=== PATIENT | male | born 1940 | race Caucasian/White ===

== ENCOUNTER → 2016-12-10 | Outpatient (CLI) | payer MEDICARE ==
[~2016-12-10] MED LIST: AMOX400S16 PO; ASPI-496 PO; ATOR10TA9 PO; HYDR15SO3 PO; METF500T4 PO; OMNIPAQUE 350 MG/ML, 100ML BOTTLE ONE; SOLI10TA PO
== END | disposition home or self-care (01) ==
LOC: CFH 15:25
PROVIDERS: ATTEND Internal Medicine Hematology & Oncology
DX: C11.9 Malignant neoplasm of nasopharynx, unspecified (principal); J32.9 Chronic sinusitis, unspecified
CPT/HCPCS: 70460; 82565; Q9967

== ENCOUNTER → 2017-03-31 | Outpatient (CLI) | payer MEDICARE ==
[~2017-03-31] MED LIST changes: -OMNIPAQUE 350 MG/ML, 100ML BOTTLE ONE; -SOLI10TA PO; +SOLI10TA2 PO
== END | disposition home or self-care (01) ==
LOC: CFH 13:52
PROVIDERS: ATTEND Internal Medicine Hematology & Oncology
DX: R90.82 White matter disease, unspecified (principal); J34.89 Other specified disorders of nose and nasal sinuses; S09.90XA Unspecified injury of head, initial encounter; W18.30XA Fall on same level, unspecified, initial encounter; C11.9 Malignant neoplasm of nasopharynx, unspecified; Y93.89 Activity, other specified; Y92.89 Other specified places as the place of occurrence of the external cause; Y99.8 Other external cause status
CPT/HCPCS: 70450

== ENCOUNTER → 2017-07-29 | Outpatient (CLI) | payer MEDICARE ==
[~2017-07-29] MED LIST changes: +OMNIPAQUE 350 MG/ML, 75ML BOTTLE ONE
== END | disposition home or self-care (01) ==
LOC: CFH 14:15
PROVIDERS: ATTEND Internal Medicine Hematology & Oncology
DX: C91.10 Chronic lymphocytic leukemia of B-cell type not having achieved remission (principal); C7A.1 Malignant poorly differentiated neuroendocrine tumors; C11.9 Malignant neoplasm of nasopharynx, unspecified; J34.89 Other specified disorders of nose and nasal sinuses
CPT/HCPCS: 70487; Q9967

== ENCOUNTER 2017-09-28 19:47 | Emergency (ER) | payer MEDICARE ==
[~2017-09-28] VITALS: Ht 172.7 cm; Wt 73.0 kg
[~2017-09-28 19:47] MED LIST changes: -OMNIPAQUE 350 MG/ML, 75ML BOTTLE ONE
[2017-09-28] MEDS ORDERED: SODIUM CHLORIDE 0.9% 1,000ML IVBOLUS ONE (20:30)
[2017-09-28] MEDS ORDERED: SODIUM CHLORIDE FLUSH 10ML SYR IVF ONE (20:30)
[2017-09-28 20:36] LABS: MEAN CORPUSCULAR HEMOGLOBIN 28.2 pg (27.5-34.5); MEAN CORPUSCULAR HGB CONC 32.1 g/dL (33.2-36.2); MEAN CORPUSCULAR VOLUME 87.7 fL (81-97); MEAN PLATELET VOLUME 6.9 fL (7.4-10.4); PLATELET COUNT 353 x10^3/uL (130-400); RED BLOOD COUNT 4.06 x10^6/uL (4.38-5.82); RED CELL DISTRIBUTION WIDTH 15.6 % (9.4-14.8)
[2017-09-28 20:43] LABS: ALANINE AMINOTRANSFERASE 18 U/L (12-78); ALBUMIN 2.7 g/dL (3.4-5.0); ANION GAP 7 mmol/L (5-15); CHLORIDE 103 mmol/L (98-107); CREATININE 0.76 mg/dL (0.7-1.3)
[2017-09-28 20:47] LABS: ALKALINE PHOSPHATASE 71 U/L (45-117); BILIRUBIN,TOTAL 0.2 mg/dL (0.2-1.0); TROPONIN I < 0.015 ng/mL (0.000-0.045)
[2017-09-28 20:54] LABS: BASOPHILS # (AUTO) 0.03 x10^3/uL (0-0.1); BASOPHILS % (AUTO) 0 % (0-1); EOSINOPHILS # (AUTO) 0.03 x10^3/uL (0-0.4); EOSINOPHILS % (AUTO) 0 % (1-7); LYMPHOCYTES # (AUTO) 3.81 x10^3/uL (1-3.4); LYMPHOCYTES % (AUTO) 35 % (22-44); MD SCAN; MONOCYTES % (AUTO) 3 % (2-9); NEUTROPHILS # (AUTO) 6.66 x10^3/uL (1.8-6.8); NEUTROPHILS % (AUTO) 61 % (42-75)
[2017-09-28 21:23] LABS: MICROSCOPIC AUTO
[2017-09-28 21:25] LABS: CULTURE INDICATED? YES
[2017-09-28 23:39] VITALS: BP 112/68
== END 2017-09-28 23:41 | disposition home or self-care (01) ==
LOC: ED 21:39
DX: N30.01 Acute cystitis with hematuria (principal); E11.9 Type 2 diabetes mellitus without complications
CPT/HCPCS: 36415; 71045; 74176; 80053; 81001; 84484; 85025; 87086; 93005; 96360; 96361; 99285; J7030

== ENCOUNTER → 2017-11-01 | Outpatient (CLI) | payer MEDICARE ==
[~2017-11-01] MED LIST changes: +OMNIPAQUE 350 MG/ML, 75ML BOTTLE ONE
== END ==
LOC: CFH 10:30
PROVIDERS: ATTEND Internal Medicine Hematology & Oncology
DX: C91.10 Chronic lymphocytic leukemia of B-cell type not having achieved remission (principal); C11.9 Malignant neoplasm of nasopharynx, unspecified; C7A.1 Malignant poorly differentiated neuroendocrine tumors
CPT/HCPCS: 70460; Q9967

== ENCOUNTER → 2018-01-31 | Outpatient (CLI) | payer MEDICARE ==
[~2018-01-31] MED LIST changes: -METF500T4 PO; +METF500T5 PO; +OMNIPAQUE 350 MG/ML, 100ML BOTTLE ONE; -OMNIPAQUE 350 MG/ML, 75ML BOTTLE ONE
== END | disposition home or self-care (01) ==
LOC: RAD 09:50
PROVIDERS: ATTEND Internal Medicine Hematology & Oncology
DX: G31.89 Other specified degenerative diseases of nervous system (principal); C91.10 Chronic lymphocytic leukemia of B-cell type not having achieved remission; C11.9 Malignant neoplasm of nasopharynx, unspecified; C7A.1 Malignant poorly differentiated neuroendocrine tumors
CPT/HCPCS: 70460; J1642

== ENCOUNTER 2018-03-07 11:01 | Emergency (ER) | payer MEDICARE ==
[~2018-03-07] VITALS: Ht 172.7 cm; Wt 74.5 kg
[~2018-03-07 11:01] MED LIST changes: -OMNIPAQUE 350 MG/ML, 100ML BOTTLE ONE
[2018-03-07] MEDS ORDERED: VISIPAQUE 270 MG/ML, 50ML BOTTLE ONE (12:33)
[2018-03-07 12:47] VITALS: BP 98/48
== END 2018-03-07 13:17 | disposition home or self-care (01) ==
LOC: ED 12:00
DX: K94.29 Other complications of gastrostomy (principal); E11.9 Type 2 diabetes mellitus without complications; Z85.818 Personal history of malignant neoplasm of other sites of lip, oral cavity, and pharynx
CPT/HCPCS: 49450; 75984; 99284; C1729; C1769; Q9966

== ENCOUNTER 2018-03-09 04:32 | Inpatient (IN) | payer MEDICARE ==
[~2018-03-09] VITALS: Ht 172.7 cm; Wt 85.2 kg
[~2018-03-09 04:32] MED LIST changes: +METF500T17 PO; -METF500T5 PO
[2018-03-09] MEDS ORDERED: SODIUM CHLORIDE 0.9% 1,000ML IVBOLUS ONE ×2 (05:00→11:00)
[2018-03-09] MEDS ORDERED: ACETAMINOPHEN 500 MG TABLET PO ONE (05:00)
[2018-03-09] MEDS ORDERED: SODIUM CHLORIDE FLUSH 10ML SYR IVF ONE (05:00)
[2018-03-09] MEDS ORDERED: ACETAMINOPHEN 500 MG TABLET ONE (05:12)
[2018-03-09 05:49] LABS: MEAN CORPUSCULAR HEMOGLOBIN 25.4 pg (27.5-34.5); MEAN CORPUSCULAR HGB CONC 32.2 g/dL (33.2-36.2); MEAN CORPUSCULAR VOLUME 78.8 fL (81-97); PLATELET COUNT 562 x10^3/uL (130-400); RED CELL DISTRIBUTION WIDTH 18.9 % (9.4-14.8)
[2018-03-09 05:59] LABS: ALANINE AMINOTRANSFERASE 15 U/L (12-78); ALBUMIN 2.2 g/dL (3.4-5.0); ANION GAP 8 mmol/L (5-15); CALCIUM 8.6 mg/dL (8.5-10.1); CHLORIDE 101 mmol/L (98-107); CREATININE 0.59 mg/dL (0.7-1.3)
[2018-03-09] MEDS ORDERED: PIPERACILLIN/TAZO/PMX 3.375GM 50 ML IV ONE (06:00)
[2018-03-09 06:04] LABS: ALKALINE PHOSPHATASE 113 U/L (45-117); BILIRUBIN,TOTAL 0.3 mg/dL (0.2-1.0); TOTAL PROTEIN 6.9 g/dL (6.4-8.2)
[2018-03-09 06:05] LABS: TROPONIN I 0.195 ng/mL (0.000-0.045)
[2018-03-09] MEDS ORDERED: PIPERACILLIN/TAZO/PMX 3.375GM 50 ML ONE (06:08)
[2018-03-09 06:13] LABS: MD YES
[2018-03-09 06:15] LABS: BANDS%(MANUAL) 2 % (0-7); EOS% (MANUAL) 1 % (1-7); LYMPH#(MANUAL) 7.04 x10^3/uL (1-3.4); LYMPHS% (MANUAL) 35 % (22-44); MONOS% (MANUAL) 1 % (2-9); SEG#(MANUAL) 12.26 x10^3/uL (1.8-6.8); SEGS% (MANUAL) 61 % (42-75)
[2018-03-09 06:16] LABS: ANISOCYTOSIS 1+; HYPOCHROMIA 1+; POLYCHROMASIA 1+
[2018-03-09 06:17] LABS: <PLATELET ESTIMATE> INCREASED; <PLT MORPHOLOGY> NORMAL PLT MORPH; SMUDGE CELLS 1+
[2018-03-09] MEDS ORDERED: VORT5TAB GT (06:22)
[2018-03-09] MEDS ORDERED: FINA5TAB4 PO (06:22)
[2018-03-09] MEDS ORDERED: LABETALOL 5MG/ML, 20ML IVPush PRN (07:00)
[2018-03-09] MEDS ORDERED: NITROGLYCERIN 0.4 MG BOTTLE (25 TABS) SL PRN (07:00)
[2018-03-09] MEDS: INSULIN LISPRO 100 UNITS/ML, PEN SQ-INSULIN SCH ×3 (07:00→21:00)
[2018-03-09] MEDS ORDERED: ONDANSETRON 2MG/ML, 2ML IVPush PRN (07:00)
[2018-03-09] MEDS ORDERED: ACETAMINOPHEN 325 MG TABLET PO PRN (07:00)
[2018-03-09] MEDS ORDERED: VANCOMYCIN 1,600 MG in SODIUM CHLORIDE 0.9% 250 ML IV ONE (07:30)
[2018-03-09] MEDS ORDERED: VANCOMYCIN PER PHARMACY MC PRN ×2 (07:30→09:00)
[2018-03-09 07:41] LABS: MICROSCOPIC AUTO
[2018-03-09 07:44] LABS: CULTURE INDICATED? NO
[2018-03-09 08:15] VITALS: BP 81/44
[2018-03-09 08:18] LABS: HEMOGLOBIN A1C 5.9 % (4.2-6.3)
[2018-03-09] MEDS ORDERED: PHARMACOKINETIC MONITORING MC PRN (09:00)
[2018-03-09] MEDS ORDERED: PHARMACOKINETIC CONSULTATION MC ONE (09:00)
[2018-03-09] MEDS ORDERED: SODIUM CHLORIDE 0.9% 1,000 ML IV SCH (09:00)
[2018-03-09] MEDS: AZITHROMYCIN 500 MG in SODIUM CHLORIDE 0.9% 250 ML IV SCH (09:52)
[2018-03-09] MEDS: ENOXAPARIN 40 MG/0.4 ML SQ SCH (09:53)
[2018-03-09 10:59] VITALS: BP 90/55
[2018-03-09 11:59] LABS: TROPONIN I 0.617 ng/mL (0.000-0.045)
[2018-03-09] MEDS: FINASTERIDE 5 MG TABLET PO SCH (12:57)
[2018-03-09] MEDS: ASPIRIN 81 MG TABLET CHEW PO SCH (12:57)
[2018-03-09] MEDS: PIPERACILLIN/TAZO/PMX 4.5GM 100 ML IV SCH ×2 (12:58→18:15)
[2018-03-09 14:40] VITALS: BP 134/83
[2018-03-09 16:16] LABS: TROPONIN I 0.483 ng/mL (0.000-0.045)
[2018-03-09] MEDS: GUAIFENESIN 200 MG TABLET PO SCH ×2 (18:15→21:28)
[2018-03-09] MEDS ORDERED: OMNIPAQUE 350 MG/ML, 75ML BOTTLE ONE (19:00)
[2018-03-09 20:35] VITALS: BP 137/82
[2018-03-09] MEDS: ATORVASTATIN 40 MG TABLET PO SCH (21:28)
[2018-03-10] MEDS: PIPERACILLIN/TAZO/PMX 4.5GM 100 ML IV SCH ×4 (00:32→18:10)
[2018-03-10 00:53] VITALS: BP 105/62
[2018-03-10] MEDS: INSULIN LISPRO 100 UNITS/ML, PEN SQ-INSULIN SCH ×4 (03:29→20:30)
[2018-03-10 05:46] LABS: MEAN CORPUSCULAR HEMOGLOBIN 25.6 pg (27.5-34.5); MEAN CORPUSCULAR HGB CONC 32.3 g/dL (33.2-36.2); MEAN CORPUSCULAR VOLUME 79.4 fL (81-97); MEAN PLATELET VOLUME 7.2 fL (7.4-10.4); PLATELET COUNT 458 x10^3/uL (130-400)
[2018-03-10 05:52] LABS: ALBUMIN 1.8 g/dL (3.4-5.0); ANION GAP 9 mmol/L (5-15); CALCIUM 8.5 mg/dL (8.5-10.1); CHLORIDE 106 mmol/L (98-107)
[2018-03-10 05:55] LABS: ALANINE AMINOTRANSFERASE 13 U/L (12-78); ALKALINE PHOSPHATASE 94 U/L (45-117); BILIRUBIN,TOTAL 0.3 mg/dL (0.2-1.0); CREATININE 0.57 mg/dL (0.7-1.3); TOTAL PROTEIN 5.9 g/dL (6.4-8.2)
[2018-03-10 06:14] LABS: MD YES
[2018-03-10 06:16] LABS: BAND#(MANUAL) 0.37 x10^3/uL; BANDS%(MANUAL) 2 % (0-7); BASOS#(MANUAL) 0.19 x10^3/uL (0-0.1); BASOS% (MANUAL) 1 % (0-1); EOS#(MANUAL) 0.19 x10^3/uL (0.0-0.4); EOS% (MANUAL) 1 % (1-7); LYMPH#(MANUAL) 6.85 x10^3/uL (1-3.4); LYMPHS% (MANUAL) 37 % (22-44); MONOS#(MANUAL) 0.37 x10^3/uL (0.3-2.7); MONOS% (MANUAL) 2 % (2-9); SEG#(MANUAL) 10.55 x10^3/uL (1.8-6.8); SEGS% (MANUAL) 57 % (42-75)
[2018-03-10 06:20] LABS: ANISOCYTOSIS 1+; POLYCHROMASIA 1+
[2018-03-10 06:21] LABS: <PLATELET ESTIMATE> INCREASED; <PLT MORPHOLOGY> NORMAL PLT MORPH
[2018-03-10] MEDS: GUAIFENESIN 200 MG TABLET PO SCH ×4 (06:27→21:41)
[2018-03-10 06:45] VITALS: BP 108/58
[2018-03-10 07:58] LABS: ABSOLUTE RETICS # 0.071 x10^6/uL (0.5-1.5); RETICULOCYTE COUNT % 2.36 % (0.5-1.5)
[2018-03-10] MEDS ORDERED: VANCOMYCIN 1,600 MG in SODIUM CHLORIDE 0.9% 250 ML IV SCH (08:00)
[2018-03-10 08:08] LABS: FOLATE LEVEL > 20.0 ng/mL (3.1-17.5)
[2018-03-10 08:16] LABS: INTERNATIONAL NORMALIZED RATIO 1.12 (0.93-1.1); PROTHROMBIN TIME 11.5 Seconds (9.6-11.5)
[2018-03-10] MEDS ORDERED: SODIUM CHLORIDE 0.9% 1,000 ML IV SCH (09:00)
[2018-03-10] MEDS: ASPIRIN 81 MG TABLET CHEW PO SCH (09:43)
[2018-03-10] MEDS: ENOXAPARIN 40 MG/0.4 ML SQ SCH (09:43)
[2018-03-10] MEDS: FINASTERIDE 5 MG TABLET PO SCH (09:44)
[2018-03-10 13:32] VITALS: BP 110/67
[2018-03-10] MEDS: AZITHROMYCIN 500 MG in SODIUM CHLORIDE 0.9% 250 ML IV SCH (13:38)
[2018-03-10] MEDS: METOPROLOL TARTRATE 25 MG TABLET PO SCH (18:10)
[2018-03-10 19:07] VITALS: BP 122/69
[2018-03-10] MEDS: ATORVASTATIN 40 MG TABLET PO SCH (21:41)
[2018-03-11] MEDS: PIPERACILLIN/TAZO/PMX 4.5GM 100 ML IV SCH ×3 (01:20→12:09)
[2018-03-11 02:30] VITALS: BP 123/71
[2018-03-11] MEDS: INSULIN LISPRO 100 UNITS/ML, PEN SQ-INSULIN SCH ×4 (03:00→21:00)
[2018-03-11] MEDS: METOPROLOL TARTRATE 25 MG TABLET PO SCH (05:44)
[2018-03-11] MEDS: GUAIFENESIN 200 MG TABLET PO SCH ×4 (05:44→21:39)
[2018-03-11 05:46] VITALS: BP 118/66
[2018-03-11 06:11] LABS: MEAN CORPUSCULAR HEMOGLOBIN 25.8 pg (27.5-34.5); MEAN CORPUSCULAR HGB CONC 32.5 g/dL (33.2-36.2); MEAN CORPUSCULAR VOLUME 79.5 fL (81-97); MEAN PLATELET VOLUME 7.3 fL (7.4-10.4); PLATELET COUNT 456 x10^3/uL (130-400)
[2018-03-11 06:15] LABS: ALBUMIN 1.7 g/dL (3.4-5.0); ANION GAP 7 mmol/L (5-15); CALCIUM 8.3 mg/dL (8.5-10.1); CHLORIDE 105 mmol/L (98-107)
[2018-03-11 06:20] LABS: ALANINE AMINOTRANSFERASE 12 U/L (12-78); ALKALINE PHOSPHATASE 95 U/L (45-117); BILIRUBIN,TOTAL 0.3 mg/dL (0.2-1.0); CREATININE 0.48 mg/dL (0.7-1.3); TOTAL PROTEIN 5.8 g/dL (6.4-8.2)
[2018-03-11 06:49] LABS: MD YES
[2018-03-11 07:43] LABS: EOS#(MANUAL) 0.75 x10^3/uL (0.0-0.4); EOS% (MANUAL) 5 % (1-7); LYMPH#(MANUAL) 5.51 x10^3/uL (1-3.4); LYMPHS% (MANUAL) 37 % (22-44); MONOS#(MANUAL) 0.45 x10^3/uL (0.3-2.7); MONOS% (MANUAL) 3 % (2-9); SEGS% (MANUAL) 55 % (42-75)
[2018-03-11 07:44] LABS: <PLATELET ESTIMATE> INCREASED; <PLT MORPHOLOGY> NORMAL PLT MORPH; ANISOCYTOSIS 1+; HYPOCHROMIA 1+; POLYCHROMASIA 1+; SMUDGE CELLS 1+
[2018-03-11] MEDS: ENOXAPARIN 40 MG/0.4 ML SQ SCH (08:56)
[2018-03-11] MEDS: ASPIRIN 81 MG TABLET CHEW PO SCH (08:56)
[2018-03-11] MEDS: SODIUM CHLORIDE 0.9% 1,000 ML IV SCH (08:58)
[2018-03-11] MEDS: FINASTERIDE 5 MG TABLET PO SCH (09:00)
[2018-03-11 09:02] VITALS: BP 119/68
[2018-03-11 13:32] VITALS: BP 132/73
[2018-03-11] MEDS ORDERED: SODIUM CHLORIDE INHALATION 7%, 4 ML NPPB ONE (14:30)
[2018-03-11 17:56] LABS: TROPONIN I 0.077 ng/mL (0.000-0.045)
[2018-03-11] MEDS: AMPICILLIN/SULBACTAM 3 GM in SODIUM CHLORIDE 0.9% 100 ML IV SCH ×2 (18:07→23:11)
[2018-03-11 20:00] VITALS: BP 135/66
[2018-03-11 20:57] LABS: OCCULT BLOOD NEGATIVE (NEGATIVE)
[2018-03-11] MEDS: ATORVASTATIN 40 MG TABLET PO SCH (21:39)
[2018-03-12 00:56] VITALS: BP 137/77
[2018-03-12] MEDS: INSULIN LISPRO 100 UNITS/ML, PEN SQ-INSULIN SCH ×4 (02:47→21:00)
[2018-03-12] MEDS: AMPICILLIN/SULBACTAM 3 GM in SODIUM CHLORIDE 0.9% 100 ML IV SCH ×3 (05:15→18:34)
[2018-03-12 05:17] VITALS: BP 129/65
[2018-03-12] MEDS: SODIUM CHLORIDE 0.9% 1,000 ML IV SCH (05:25)
[2018-03-12] MEDS: METOPROLOL SUCCINATE 25 MG TAB.ER.24H PO SCH (05:26)
[2018-03-12] MEDS: GUAIFENESIN 200 MG TABLET PO SCH ×4 (05:26→21:36)
[2018-03-12 05:43] LABS: ALANINE AMINOTRANSFERASE 13 U/L (12-78); ALBUMIN 1.7 g/dL (3.4-5.0); ANION GAP 6 mmol/L (5-15); CALCIUM 8.1 mg/dL (8.5-10.1); CHLORIDE 104 mmol/L (98-107)
[2018-03-12 05:46] LABS: ALKALINE PHOSPHATASE 93 U/L (45-117); BILIRUBIN,TOTAL 0.2 mg/dL (0.2-1.0); CREATININE 0.44 mg/dL (0.7-1.3); TOTAL PROTEIN 5.7 g/dL (6.4-8.2)
[2018-03-12 05:48] LABS: TROPONIN I 0.069 ng/mL (0.000-0.045)
[2018-03-12 05:49] LABS: MEAN CORPUSCULAR HEMOGLOBIN 25.3 pg (27.5-34.5); MEAN CORPUSCULAR HGB CONC 32.3 g/dL (33.2-36.2); MEAN CORPUSCULAR VOLUME 78.4 fL (81-97); MEAN PLATELET VOLUME 7.2 fL (7.4-10.4); PLATELET COUNT 457 x10^3/uL (130-400); RED BLOOD COUNT 3.19 x10^6/uL (4.38-5.82); RED CELL DISTRIBUTION WIDTH 18.7 % (9.4-14.8)
[2018-03-12 06:54] VITALS: BP 135/72
[2018-03-12 07:05] LABS: MD YES
[2018-03-12 07:07] LABS: EOS#(MANUAL) 0.56 x10^3/uL (0.0-0.4); EOS% (MANUAL) 4 % (1-7); LYMPH#(MANUAL) 6.02 x10^3/uL (1-3.4); LYMPHS% (MANUAL) 43 % (22-44); MONOS#(MANUAL) 0.28 x10^3/uL (0.3-2.7); MONOS% (MANUAL) 2 % (2-9); SEG#(MANUAL) 7.14 x10^3/uL (1.8-6.8); SEGS% (MANUAL) 51 % (42-75)
[2018-03-12 07:08] LABS: <PLATELET ESTIMATE> INCREASED; <PLT MORPHOLOGY> NORMAL PLT MORPH; ANISOCYTOSIS 1+; HYPOCHROMIA 1+; POLYCHROMASIA 1+; SMUDGE CELLS 1+
[2018-03-12] MEDS ORDERED: SODIUM PHOSPHATE 4 MEQ/ML IV SCH (08:30)
[2018-03-12] MEDS ORDERED: MAGNESIUM SULFATE PMX 2GM/50ML 50 ML IV ONE (08:30)
[2018-03-12] MEDS ORDERED: SODIUM PHOSPHATE 30 MMOL in SODIUM CHLORIDE 0.9% 500 ML IV ONE (09:00)
[2018-03-12] MEDS: FINASTERIDE 5 MG TABLET PO SCH (09:44)
[2018-03-12] MEDS: ASPIRIN 81 MG TABLET CHEW PO SCH (09:44)
[2018-03-12] MEDS: ENOXAPARIN 40 MG/0.4 ML SQ SCH (09:49)
[2018-03-12] MEDS: TRINTELLIX 5 MG HOMEMEDPO SCH (12:30)
[2018-03-12 14:16] VITALS: BP 120/68
[2018-03-12] MEDS: IBUPROFEN 200 MG TABLET PO PRN ×2 (15:24→21:36)
[2018-03-12 19:10] VITALS: BP 105/69
[2018-03-12] MEDS: ATORVASTATIN 40 MG TABLET PO SCH (21:36)
[2018-03-13] MEDS: AMPICILLIN/SULBACTAM 3 GM in SODIUM CHLORIDE 0.9% 100 ML IV SCH ×4 (01:06→18:25)
[2018-03-13 01:19] VITALS: BP 101/52
[2018-03-13] MEDS: INSULIN LISPRO 100 UNITS/ML, PEN SQ-INSULIN SCH ×4 (03:00→20:25)
[2018-03-13 05:53] VITALS: BP 136/69
[2018-03-13] MEDS: METOPROLOL SUCCINATE 25 MG TAB.ER.24H PO SCH (06:04)
[2018-03-13] MEDS: GUAIFENESIN 200 MG TABLET PO SCH ×4 (06:04→20:43)
[2018-03-13 06:20] LABS: MEAN CORPUSCULAR HEMOGLOBIN 25.4 pg (27.5-34.5); MEAN CORPUSCULAR HGB CONC 32.2 g/dL (33.2-36.2); MEAN PLATELET VOLUME 7.4 fL (7.4-10.4); PLATELET COUNT 429 x10^3/uL (130-400); RED BLOOD COUNT 3.06 x10^6/uL (4.38-5.82); RED CELL DISTRIBUTION WIDTH 19.3 % (9.4-14.8)
[2018-03-13 06:30] LABS: CHLORIDE 107 mmol/L (98-107)
[2018-03-13 06:39] LABS: ALANINE AMINOTRANSFERASE 13 U/L (12-78); ALBUMIN 1.6 g/dL (3.4-5.0); ALKALINE PHOSPHATASE 88 U/L (45-117); ANION GAP 8 mmol/L (5-15); BILIRUBIN,TOTAL 0.2 mg/dL (0.2-1.0); CALCIUM 8.5 mg/dL (8.5-10.1); CREATININE 0.41 mg/dL (0.7-1.3); TOTAL PROTEIN 5.5 g/dL (6.4-8.2)
[2018-03-13 06:43] VITALS: BP 119/68
[2018-03-13 07:37] LABS: MD YES
[2018-03-13 07:39] LABS: BAND#(MANUAL) 0.12 x10^3/uL; BANDS%(MANUAL) 1 % (0-7); EOS#(MANUAL) 0.25 x10^3/uL (0.0-0.4); EOS% (MANUAL) 2 % (1-7); LYMPH#(MANUAL) 5.83 x10^3/uL (1-3.4); LYMPHS% (MANUAL) 47 % (22-44); MONOS#(MANUAL) 0.37 x10^3/uL (0.3-2.7); MONOS% (MANUAL) 3 % (2-9); SEG#(MANUAL) 5.83 x10^3/uL (1.8-6.8); SEGS% (MANUAL) 47 % (42-75)
[2018-03-13 07:40] LABS: <PLATELET ESTIMATE> INCREASED; <PLT MORPHOLOGY> NORMAL PLT MORPH; ANISOCYTOSIS 1+; HYPOCHROMIA 1+; POLYCHROMASIA 1+; SMUDGE CELLS 1+
[2018-03-13] MEDS: FINASTERIDE 5 MG TABLET PO SCH (09:00)
[2018-03-13] MEDS: TRINTELLIX 5 MG HOMEMEDPO SCH (09:00)
[2018-03-13] MEDS: ASPIRIN 81 MG TABLET CHEW PO SCH (09:00)
[2018-03-13] MEDS: IBUPROFEN 200 MG TABLET PO PRN ×2 (09:06→20:43)
[2018-03-13] MEDS: ENOXAPARIN 40 MG/0.4 ML SQ SCH (09:14)
[2018-03-13] MEDS: SODIUM CHLORIDE 0.9% 1,000 ML IV SCH (13:00)
[2018-03-13 13:02] VITALS: BP 115/71
[2018-03-13] MEDS: ATORVASTATIN 40 MG TABLET PO SCH (20:43)
[2018-03-13 20:51] VITALS: BP 134/67
[2018-03-14] MEDS: AMPICILLIN/SULBACTAM 3 GM in SODIUM CHLORIDE 0.9% 100 ML IV SCH ×3 (00:17→11:31)
[2018-03-14 01:24] VITALS: BP 122/63
[2018-03-14] MEDS: INSULIN LISPRO 100 UNITS/ML, PEN SQ-INSULIN SCH ×4 (03:00→20:02)
[2018-03-14 06:04] LABS: MEAN CORPUSCULAR HEMOGLOBIN 25.9 pg (27.5-34.5); MEAN CORPUSCULAR HGB CONC 32.8 g/dL (33.2-36.2); MEAN CORPUSCULAR VOLUME 79.2 fL (81-97); MEAN PLATELET VOLUME 7.3 fL (7.4-10.4); PLATELET COUNT 470 x10^3/uL (130-400); RED BLOOD COUNT 2.91 x10^6/uL (4.38-5.82); RED CELL DISTRIBUTION WIDTH 19.1 % (9.4-14.8)
[2018-03-14 06:13] LABS: ALBUMIN 1.5 g/dL (3.4-5.0); ANION GAP 4 mmol/L (5-15); CALCIUM 8.4 mg/dL (8.5-10.1); CHLORIDE 108 mmol/L (98-107); CREATININE 0.38 mg/dL (0.7-1.3)
[2018-03-14] MEDS: GUAIFENESIN 200 MG TABLET PO SCH ×4 (06:17→22:03)
[2018-03-14] MEDS: METOPROLOL SUCCINATE 25 MG TAB.ER.24H PO SCH (06:17)
[2018-03-14 06:35] VITALS: BP 135/75
[2018-03-14 06:38] LABS: MD YES
[2018-03-14 07:23] LABS: EOS#(MANUAL) 0.44 x10^3/uL (0.0-0.4); EOS% (MANUAL) 3 % (1-7); LYMPH#(MANUAL) 5.48 x10^3/uL (1-3.4); LYMPHS% (MANUAL) 37 % (22-44); MONOS#(MANUAL) 0.44 x10^3/uL (0.3-2.7); MONOS% (MANUAL) 3 % (2-9); SEG#(MANUAL) 8.44 x10^3/uL (1.8-6.8); SEGS% (MANUAL) 57 % (42-75)
[2018-03-14 07:24] LABS: <PLATELET ESTIMATE> INCREASED; <PLT MORPHOLOGY> NORMAL PLT MORPH; ANISOCYTOSIS 1+; HYPOCHROMIA 1+; POLYCHROMASIA 1+; SMUDGE CELLS 1+
[2018-03-14] MEDS: ASPIRIN 81 MG TABLET CHEW PO SCH (09:46)
[2018-03-14] MEDS: IBUPROFEN 200 MG TABLET PO PRN (09:46)
[2018-03-14] MEDS: ENOXAPARIN 40 MG/0.4 ML SQ SCH (09:46)
[2018-03-14] MEDS: TRINTELLIX 5 MG HOMEMEDPO SCH (09:47)
[2018-03-14] MEDS: FINASTERIDE 5 MG TABLET PO SCH (09:47)
[2018-03-14] MEDS: SODIUM CHLORIDE 0.9% 1,000 ML IV SCH (09:47)
[2018-03-14] MEDS ORDERED: AMOX1TAB64 PO (11:38)
[2018-03-14 13:54] VITALS: BP 123/67
[2018-03-14 18:40] VITALS: BP 133/64
[2018-03-14] MEDS: ATORVASTATIN 40 MG TABLET PO SCH (22:03)
[2018-03-14] MEDS: AMOXICILLIN/CLAV 875-125MG TABLET GT SCH (22:03)
[2018-03-15 00:32] VITALS: BP 138/72
[2018-03-15] MEDS: INSULIN LISPRO 100 UNITS/ML, PEN SQ-INSULIN SCH ×2 (03:00→10:31)
[2018-03-15] MEDS: METOPROLOL SUCCINATE 25 MG TAB.ER.24H PO SCH (06:20)
[2018-03-15] MEDS: GUAIFENESIN 200 MG TABLET PO SCH ×2 (06:20→10:06)
[2018-03-15 06:51] VITALS: BP 133/68
[2018-03-15 08:36] LABS: MEAN CORPUSCULAR HEMOGLOBIN 25.7 pg (27.5-34.5); MEAN PLATELET VOLUME 6.8 fL (7.4-10.4); PLATELET COUNT 545 x10^3/uL (130-400); RED BLOOD COUNT 3.19 x10^6/uL (4.38-5.82); RED CELL DISTRIBUTION WIDTH 19.7 % (9.4-14.8)
[2018-03-15 08:47] LABS: ALBUMIN 1.7 g/dL (3.4-5.0); ANION GAP 7 mmol/L (5-15); CALCIUM 8.5 mg/dL (8.5-10.1); CHLORIDE 103 mmol/L (98-107)
[2018-03-15 08:51] LABS: ALANINE AMINOTRANSFERASE 13 U/L (12-78); ALKALINE PHOSPHATASE 86 U/L (45-117); BILIRUBIN,TOTAL 0.3 mg/dL (0.2-1.0); CREATININE 0.45 mg/dL (0.7-1.3); TOTAL PROTEIN 6.1 g/dL (6.4-8.2)
[2018-03-15 08:56] LABS: MD YES
[2018-03-15 08:58] LABS: EOS% (MANUAL) 1 % (1-7); LYMPH#(MANUAL) 7.44 x10^3/uL (1-3.4); LYMPHS% (MANUAL) 37 % (22-44); MONOS% (MANUAL) 1 % (2-9); SEG#(MANUAL) 12.26 x10^3/uL (1.8-6.8); SEGS% (MANUAL) 61 % (42-75)
[2018-03-15 08:59] LABS: <PLATELET ESTIMATE> INCREASED; <PLT MORPHOLOGY> NORMAL PLT MORPH; ANISOCYTOSIS 1+; MICROCYTOSIS 1+; POLYCHROMASIA 1+; SMUDGE CELLS 1+
[2018-03-15] MEDS: TRINTELLIX 5 MG HOMEMEDPO SCH (09:00)
[2018-03-15] MEDS: AMOXICILLIN/CLAV 875-125MG TABLET GT SCH (10:06)
[2018-03-15] MEDS: FINASTERIDE 5 MG TABLET PO SCH (10:06)
== END 2018-03-15 12:50 | disposition home or self-care (01) | DRG 871 ==
LOC: ED 05:49 → EDIP 06:52 → 4EST 07:50 → DCLOUNGE 03-15 12:42
PROVIDERS: ADMIT Hospitalist; ATTEND Hospitalist
DX: A41.9 Sepsis, unspecified organism (principal); J69.0 Pneumonitis due to inhalation of food and vomit; J96.01 Acute respiratory failure with hypoxia; I24.8 Other forms of acute ischemic heart disease; D50.9 Iron deficiency anemia, unspecified; D63.8 Anemia in other chronic diseases classified elsewhere; E11.9 Type 2 diabetes mellitus without complications; H91.90 Unspecified hearing loss, unspecified ear; I25.10 Atherosclerotic heart disease of native coronary artery without angina pectoris; R04.0 Epistaxis; R65.20 Severe sepsis without septic shock; Z85.6 Personal history of leukemia; Z85.819 Personal history of malignant neoplasm of unspecified site of lip, oral cavity, and pharynx; Z92.21 Personal history of antineoplastic chemotherapy; Z92.3 Personal history of irradiation; Z93.1 Gastrostomy status; Z95.5 Presence of coronary angioplasty implant and graft; Z96.659 Presence of unspecified artificial knee joint; D47.3 Essential (hemorrhagic) thrombocythemia
CPT/HCPCS: 36415; 71045; 71260; 74230; 80048; 80053; 81001; 82040; 82272; 82728; 82746; 82962; 83036; 83540; 83550; 83605; 83615; 83735; 84100; 84145; 84443; 84484; 85025; 85045; 85610; 85730; 87040; 87070; 87205; 93005; 93306; 94640; 96365; 99291; G0378; J0295; J0456; J1650; J2543; J3370; Q9967; 92523-GN; J1815; J3475; J7030; J7040; J7050

== ENCOUNTER → 2018-06-05 | Outpatient (CLI) | payer MEDICARE ==
[~2018-06-05] MED LIST changes: +AMOX1TAB64 PO; +FINA5TAB4 PO; +VORT5TAB GT
== END | disposition home or self-care (01) ==
LOC: RAD 13:21
PROVIDERS: ATTEND Family Medicine
DX: R13.10 Dysphagia, unspecified (principal)
CPT/HCPCS: 74230; 92611; G8996; G8997; G8998

== ENCOUNTER 2018-08-08 09:44 | Outpatient (CLI) | payer MEDICARE | END 2018-08-08 23:59 | disposition home or self-care (01) | LOC: RAD 09:44 | PROVIDERS: ATTEND Family Medicine | DX: R47.02 Dysphasia (principal) | CPT/HCPCS: 74230 ==

== ENCOUNTER 2018-10-05 12:37 | Outpatient (CLI) | payer MEDICARE ==
[2018-10-05] MEDS ORDERED: OMNIPAQUE 350 MG/ML, 100ML BOTTLE ONE (13:29)
== END 2018-10-05 23:59 | disposition home or self-care (01) ==
LOC: RAD 12:37
PROVIDERS: ATTEND Internal Medicine Hematology & Oncology
DX: G31.9 Degenerative disease of nervous system, unspecified (principal); J32.9 Chronic sinusitis, unspecified; C91.10 Chronic lymphocytic leukemia of B-cell type not having achieved remission; C11.9 Malignant neoplasm of nasopharynx, unspecified; C7A.1 Malignant poorly differentiated neuroendocrine tumors
CPT/HCPCS: 70460; J1642; Q9967

== ENCOUNTER → 2018-11-15 | Outpatient (CLI) | payer MEDICARE | END | disposition home or self-care (01) | LOC: RAD 12:49 | PROVIDERS: ATTEND Family Medicine | DX: R13.10 Dysphagia, unspecified (principal) | CPT/HCPCS: 74230 ==

== ENCOUNTER → 2019-08-17 | Outpatient (CLI) | payer MEDICARE ==
[~2019-08-17] MED LIST changes: +CEFD300C37 PO; +OMNIPAQUE 350 MG/ML, 100ML BOTTLE ONE
== END | disposition home or self-care (01) ==
LOC: CFH 11:01
PROVIDERS: ATTEND Internal Medicine Hematology & Oncology
DX: C91.10 Chronic lymphocytic leukemia of B-cell type not having achieved remission (principal); C11.9 Malignant neoplasm of nasopharynx, unspecified; C7A.1 Malignant poorly differentiated neuroendocrine tumors; J34.89 Other specified disorders of nose and nasal sinuses
CPT/HCPCS: 70460; Q9967

== ENCOUNTER 2020-02-04 09:52 | Inpatient (IN) | payer MEDICARE ==
[~2020-02-04] VITALS: Ht 170.2 cm; Wt 82.6 kg
[~2020-02-04 09:52] MED LIST changes: -OMNIPAQUE 350 MG/ML, 100ML BOTTLE ONE
--- NOTE | 2020-02-04 10:00 | NUR ---
BIB EMS FROM HOME, NON VERBAL WITH THIS RN. NODS APPROPRIATELY. EMS RPTS THAT SAID HE HAS HAD PROGRESSIVE WEAKNESS OVER LAST FEW DAYS. PT SEEN BY ENT AND IS ON ANTIBIOTIC FOR SINUS INFECTION. ALL MONITORS PLACED, VSS.
[2020-02-04] MEDS ORDERED: SODIUM CHLORIDE 0.9% 1,000 ML IV ONE (10:02)
[2020-02-04] MEDS ORDERED: PLEASE ENTER HEIGHT AND WEIGHT MC SCH (10:30)
[2020-02-04 10:37] LABS: MEAN CORPUSCULAR HEMOGLOBIN 29.5 pg (27.5-34.5); MEAN CORPUSCULAR HGB CONC 32.7 g/dL (33.2-36.2); MEAN PLATELET VOLUME 7.2 fL (7.4-10.4); PLATELET COUNT 343 x10^3/uL (130-400); RED BLOOD COUNT 3.99 x10^6/uL (4.38-5.82); RED CELL DISTRIBUTION WIDTH 15.9 % (9.4-14.8)
[2020-02-04 10:46] LABS: ALBUMIN 2.6 g/dL (3.4-5.0); ANION GAP 6 mmol/L (5-15); CALCIUM 9.4 mg/dL (8.5-10.1); CHLORIDE 92 mmol/L (98-107)
[2020-02-04 10:49] LABS: ALANINE AMINOTRANSFERASE 21 U/L (12-78); ALKALINE PHOSPHATASE 126 U/L (45-117); BILIRUBIN,TOTAL 0.5 mg/dL (0.2-1.0); CREATININE 0.63 mg/dL (0.7-1.3)
--- NOTE | 2020-02-04 10:49 | NUR ---
DR RAPP AT BEDSIDE, ASSESSMENT POC DISCUSSED WITH AND QUESTIONS ANSWERED.
[2020-02-04] MEDS ORDERED: PIPERACILLIN/TAZO/PMX 3.375GM 50 ML IV ONE (11:00)
[2020-02-04] MEDS ORDERED: TRINTELLIX PO (11:17)
[2020-02-04 11:19] LABS: MD YES
[2020-02-04 11:21] LABS: BAND#(MANUAL) 0.51 x10^3/uL; BANDS%(MANUAL) 2 % (0-7); LYMPHS% (MANUAL) 49 % (22-44); MONOS#(MANUAL) 1.02 x10^3/uL (0.3-2.7); MONOS% (MANUAL) 4 % (2-9); SEG#(MANUAL) 11.48 x10^3/uL (1.8-6.8); SEGS% (MANUAL) 45 % (42-75)
[2020-02-04] MEDS ORDERED: PIPERACILLIN/TAZO/PMX 3.375GM 50 ML ONE (11:21)
[2020-02-04 11:23] LABS: ANISOCYTOSIS 1+
[2020-02-04 11:24] LABS: <PLATELET ESTIMATE> ADEQUATE; <PLT MORPHOLOGY> NORMAL PLT MORPH; PMNS WITH VACUOLES 1+
[2020-02-04 11:25] LABS: SMUDGE CELLS 1+
[2020-02-04 11:26] LABS: MICROSCOPIC INDICATED
--- NOTE | 2020-02-04 11:40 | NUR ---
POC AND ADMIT REVIEWED WITH AND QUESTIONS ANSWERED. IVF AND ANTIBIOTICS INFUSING W/O DIFFICULTY. PT VSS, NAD NOTED.
--- NOTE | 2020-02-04 11:43 | NUR ---
PT TO CT WITH TECH TRANSPORT. IVF ON HOLD.
[2020-02-04 11:51] LABS: CHLORIDE,URINE RANDOM 26 mmol/L; POTASSIUM,URINE RANDOM 52 mmol/L; SODIUM,URINE RANDOM 55 mmol/L
--- NOTE | 2020-02-04 12:09 | NUR ---
PT RTD FROM CT. VSS, AT BEDSIDE, CALL LIGHT W/I REACH. IVF INFUSING W/O DIFFICULTY.
[2020-02-04] MEDS ORDERED: OMNIPAQUE 350 MG/ML, 75ML BOTTLE ONE (12:14)
[2020-02-04 12:31] LABS: OSMOLALITY,URINE 545 mOsm/kg (500-850)
--- NOTE | 2020-02-04 13:03 | NUR ---
PT REPOSITIONED TO LEFT SIDE AND PILLOWS TO OFF LOAD COCCYX.
--- NOTE | 2020-02-04 13:18 | NUR ---
[facility] RPT TO NELA MELCHOR. PT TO REMAIN IN ED PENDING ROOM ASSIGNMENT.
[2020-02-04] MEDS ORDERED: DOXYCYCLINE 100MG TABLET PO ONE (14:00)
[2020-02-04] MEDS ORDERED: ENOXAPARIN 40 MG/0.4 ML SQ SCH (14:00)
[2020-02-04] MEDS ORDERED: PIPERACILLIN/TAZO/PMX 3.375GM 50 ML IV SCH (14:00)
[2020-02-04] MEDS ORDERED: ACETAMINOPHEN 325 MG TABLET PO PRN (14:00)
[2020-02-04 15:34] VITALS: BP 151/78
[2020-02-04] MEDS: INSULIN LISPRO 100 UNITS/ML, PEN SQ-INSULIN SCH ×2 (16:00→20:14)
[2020-02-04] MEDS ORDERED: HEPARIN 5,000 UNITS/ML, 1ML IV PRN ×2 (19:00)
[2020-02-04 19:18] VITALS: BP 148/72
[2020-02-04] MEDS: SODIUM CHLORIDE 0.9% 1,000 ML IV SCH (20:00)
[2020-02-04] MEDS: PIPERACILLIN/TAZO/PMX 3.375GM 50 ML IV SCH (20:07)
[2020-02-04] MEDS: HEPARIN 25,000 UNITS/250ML PMX 250 ML IV PRN (21:54)
[2020-02-05 02:00] VITALS: BP 146/72
[2020-02-05] MEDS: PIPERACILLIN/TAZO/PMX 3.375GM 50 ML IV SCH ×3 (03:26→19:48)
[2020-02-05 04:13] LABS: MEAN CORPUSCULAR HEMOGLOBIN 29.6 pg (27.5-34.5); MEAN CORPUSCULAR HGB CONC 32.6 g/dL (33.2-36.2); MEAN PLATELET VOLUME 7.4 fL (7.4-10.4); PLATELET COUNT 318 x10^3/uL (130-400); RED BLOOD COUNT 3.68 x10^6/uL (4.38-5.82); RED CELL DISTRIBUTION WIDTH 15.8 % (9.4-14.8)
[2020-02-05 04:22] LABS: CHLORIDE 96 mmol/L (98-107)
[2020-02-05 04:36] LABS: ALANINE AMINOTRANSFERASE 20 U/L (12-78); ALBUMIN 2.2 g/dL (3.4-5.0); ALKALINE PHOSPHATASE 107 U/L (45-117); ANION GAP 7 mmol/L (5-15); BILIRUBIN,TOTAL 0.6 mg/dL (0.2-1.0); CALCIUM 8.7 mg/dL (8.5-10.1); CREATININE 0.49 mg/dL (0.7-1.3); TOTAL PROTEIN 6.1 g/dL (6.4-8.2)
[2020-02-05 04:52] LABS: MD YES
[2020-02-05 04:54] LABS: LYMPH#(MANUAL) 13.58 x10^3/uL (1-3.4); LYMPHS% (MANUAL) 62 % (22-44); MONOS#(MANUAL) 0.22 x10^3/uL (0.3-2.7); MONOS% (MANUAL) 1 % (2-9); SEGS% (MANUAL) 37 % (42-75)
[2020-02-05 04:55] LABS: <PLATELET ESTIMATE> ADEQUATE; <PLT MORPHOLOGY> NORMAL PLT MORPH; ANISOCYTOSIS 1+; PMNS WITH VACUOLES 1+; SMUDGE CELLS 1+
[2020-02-05] MEDS: SODIUM CHLORIDE 0.9% 1,000 ML IV SCH (06:41)
[2020-02-05] MEDS: INSULIN LISPRO 100 UNITS/ML, PEN SQ-INSULIN SCH ×4 (07:00→19:54)
[2020-02-05 07:58] VITALS: BP 102/65
[2020-02-05] MEDS: TRINTELLIX 20 MG PO SCH (09:00)
[2020-02-05 13:47] VITALS: BP 132/73
[2020-02-05] MEDS ORDERED: VANCOMYCIN PER PHARMACY MC PRN (15:30)
[2020-02-05] MEDS ORDERED: PHARMACOKINETIC MONITORING MC PRN (15:30)
[2020-02-05] MEDS ORDERED: PHARMACOKINETIC CONSULTATION MC ONE (15:30)
[2020-02-05] MEDS: VANCOMYCIN 1,500 MG in SODIUM CHLORIDE 0.9% 250 ML IV SCH (16:08)
[2020-02-05 20:11] VITALS: BP 132/72
[2020-02-05] MEDS: HEPARIN 25,000 UNITS/250ML PMX 250 ML IV PRN (21:12)
[2020-02-06 01:54] VITALS: BP 130/73
[2020-02-06] MEDS: PIPERACILLIN/TAZO/PMX 3.375GM 50 ML IV SCH ×3 (03:03→20:07)
[2020-02-06 04:07] LABS: MEAN CORPUSCULAR HEMOGLOBIN 29.7 pg (27.5-34.5); MEAN CORPUSCULAR HGB CONC 32.8 g/dL (33.2-36.2); MEAN PLATELET VOLUME 7.5 fL (7.4-10.4); PLATELET COUNT 304 x10^3/uL (130-400); RED BLOOD COUNT 3.59 x10^6/uL (4.38-5.82); RED CELL DISTRIBUTION WIDTH 15.7 % (9.4-14.8)
[2020-02-06 04:20] LABS: ANION GAP 8 mmol/L (5-15); CALCIUM 8.2 mg/dL (8.5-10.1); CHLORIDE 96 mmol/L (98-107)
[2020-02-06 04:22] LABS: CREATININE 0.45 mg/dL (0.7-1.3)
[2020-02-06 04:39] LABS: BASOPHILS # (AUTO) 0.07 x10^3/uL (0-0.1); BASOPHILS % (AUTO) 0 % (0-1); EOSINOPHILS # (AUTO) 0.24 x10^3/uL (0-0.4); EOSINOPHILS % (AUTO) 1 % (1-7); LYMPHOCYTES # (AUTO) 9.86 x10^3/uL (1-3.4); LYMPHOCYTES % (AUTO) 50 % (22-44); MD SCAN; MONOCYTES # (AUTO) 0.71 x10^3/uL (0.2-0.8); MONOCYTES % (AUTO) 4 % (2-9); NEUTROPHILS # (AUTO) 8.79 x10^3/uL (1.8-6.8); NEUTROPHILS % (AUTO) 45 % (42-75)
[2020-02-06] MEDS: INSULIN LISPRO 100 UNITS/ML, PEN SQ-INSULIN SCH ×4 (07:00→20:07)
[2020-02-06 07:59] VITALS: BP 118/71
[2020-02-06] MEDS: TRINTELLIX 20 MG PO SCH (09:00)
[2020-02-06 13:27] VITALS: BP 134/73
[2020-02-06] MEDS: VANCOMYCIN 1,500 MG in SODIUM CHLORIDE 0.9% 250 ML IV SCH (15:33)
[2020-02-06] MEDS ORDERED: HEPARIN 25,000 UNITS/250ML PMX 250 ML ONE (16:45)
[2020-02-06] MEDS: HEPARIN 25,000 UNITS/250ML PMX 250 ML IV PRN (16:48)
[2020-02-06 20:10] VITALS: BP 158/91
[2020-02-07 03:00] VITALS: BP 111/71
[2020-02-07] MEDS: PIPERACILLIN/TAZO/PMX 3.375GM 50 ML IV SCH ×2 (05:12→12:47)
[2020-02-07] MEDS: INSULIN LISPRO 100 UNITS/ML, PEN SQ-INSULIN SCH ×2 (07:00→11:57)
[2020-02-07 08:00] VITALS: BP 154/88
[2020-02-07] MEDS: TRINTELLIX 20 MG PO SCH (09:00)
[2020-02-07] MEDS: HEPARIN 25,000 UNITS/250ML PMX 250 ML IV PRN (11:59)
[2020-02-07 13:59] VITALS: BP 114/72
[2020-02-07] MEDS ORDERED: SULF1TAB24 PO (15:06)
== END 2020-02-07 16:19 | disposition hospice, home (50) | DRG 177 ==
LOC: ED 10:57 → EDIP 11:57 → 4WST 13:50
PROVIDERS: ADMIT Internal Medicine; ATTEND Internal Medicine
DX: J69.0 Pneumonitis due to inhalation of food and vomit (principal); E43 Unspecified severe protein-calorie malnutrition; G93.41 Metabolic encephalopathy; J96.01 Acute respiratory failure with hypoxia; I82.290 Acute embolism and thrombosis of other thoracic veins; E87.1 Hypo-osmolality and hyponatremia; I87.1 Compression of vein; I82.621 Acute embolism and thrombosis of deep veins of right upper extremity; K92.1 Melena; R29.6 Repeated falls; D64.9 Anemia, unspecified; E78.5 Hyperlipidemia, unspecified; I25.10 Atherosclerotic heart disease of native coronary artery without angina pectoris; E11.9 Type 2 diabetes mellitus without complications; R13.10 Dysphagia, unspecified; J32.0 Chronic maxillary sinusitis; Z51.5 Encounter for palliative care; Z79.899 Other long term (current) drug therapy; Z82.3 Family history of stroke; Z85.6 Personal history of leukemia; Z85.818 Personal history of malignant neoplasm of other sites of lip, oral cavity, and pharynx; Z85.89 Personal history of malignant neoplasm of other organs and systems; Z93.59 Other cystostomy status
CPT/HCPCS: 36415; 70460; 70487; 71045; 71260; 74230; 80048; 80053; 81001; 82436; 82962; 83605; 83735; 83930; 83935; 84100; 84133; 84145; 84300; 84443; 85014; 85018; 85025; 85520; 87040; 87077; 87086; 87147; 87186; 93005; 93931; 96365; G0378; J1644; J1650; J2543; J3370; Q9967; J1815; J7030; J7050